=== PATIENT | male | born 1960 | race Caucasian/White ===

== ENCOUNTER 2017-05-18 09:40 | Emergency (ER) | payer OTHER ==
[2017-05-18 09:49] VITALS: RESP 16
[2017-05-18] MEDS ORDERED: RX INFO: IV CONTRAST WAS GIVEN 1 EACH MISC MISCELLANE PRN (10:07)
[2017-05-18 10:31] LABS: Basophils # (A) 0.1 k/uL (0-0.2); Basophils % (A) 1 %; Eosinophils # (A) 0.3 k/uL (0-0.7); Eosinophils % (A) 3 %; HCT 41.8 % (39.0-53.0); HGB 14.2 gm/dL (13.0-17.5); Lymphocytes # (A) 3.2 k/uL (1.0-4.8); Lymphocytes % (A) 30 %; MCH 33.1 pg (25.0-35.0); MCV 97.2 fL (80.0-100.0); Mean Platelet Volume 7.9; Monocytes # (A) 0.9 k/uL (0-1.0); Monocytes % (A) 9 %; Neutrophils # (A) 5.9 k/uL (1.3-7.7); Neutrophils % (A) 55 %; Platelet Count 312 k/uL (150-450); RDW 12.7 % (11.5-15.5); WBC 10.7 k/uL (3.8-10.6)
[2017-05-18 10:39] LABS: ALT 70 U/L (21-72); AST 56 U/L (17-59); Albumin 3.8 g/dL (3.5-5.0); Alkaline Phosphatase 72 U/L (38-126); Anion Gap 10 mmol/L; Blood Urea Nitrogen 7 mg/dL (9-20); Calcium 9.6 mg/dL (8.4-10.2); Carbon Dioxide 34 mmol/L (22-30); Chloride 98 mmol/L (98-107); Glucose 96 mg/dL (74-99); Potassium 3.4 mmol/L (3.5-5.1); Sodium 142 mmol/L (137-145); Total Bilirubin 0.7 mg/dL (0.2-1.3); Total Protein 6.6 g/dL (6.3-8.2)
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
[2017-05-18 12:21] VITALS: BP 122/93; PULSE 76; TEMP 98.7
== END 2017-05-18 12:20 | disposition home or self-care (01) ==
LOC: EC 09:40
DX: S20.219A Contusion of unspecified front wall of thorax, initial encounter (principal); S80.02XA Contusion of left knee, initial encounter; S60.811A Abrasion of right wrist, initial encounter; E78.5 Hyperlipidemia, unspecified; I10 Essential (primary) hypertension; F17.200 Nicotine dependence, unspecified, uncomplicated; Z79.1 Long term (current) use of non-steroidal anti-inflammatories (NSAID); Z79.51 Long term (current) use of inhaled steroids; Z79.891 Long term (current) use of opiate analgesic; Z79.899 Other long term (current) drug therapy; V49.40XA Driver injured in collision with unspecified motor vehicles in traffic accident, initial encounter; Y92.410 Unspecified street and highway as the place of occurrence of the external cause
CPT/HCPCS: 36415; 93005; 80053; 84484; 85025; 73562; 72125; 70450; 71260; 99285; Q9967

== ENCOUNTER 2017-10-10 10:27 | Emergency (ER) | payer OTHER ==
[2017-10-10] MEDS ORDERED: KETOROLAC 60 MG/2 ML VIAL IM STA (11:28)
--- NOTE | 2017-10-10 11:29 | ED ---
General Adult HPI - General Chief complaint: Recheck/Abnormal Lab/Rx Stated complaint: wants pain meds/neck pain Time Seen by Provider: 10/10/17 11:11 Source: patient, RN notes reviewed Mode of arrival: ambulatory Limitations: no limitations - History of Present Illness Initial comments: Patient 56-year-old male presented to the emergency room today with a chief complaint of chronic pain. Patient dismissed pain to his neck, back, knees. Patient states that he currently does not have any pain medication. Patient states she's been trying follow-up family doctor's waiting to look for him get his prescription. Patient states she's been using Tylenol at home. Week. He denies any injury or trauma patient denies any gallbladder incontinence times. Denies any saddle anesthesia. Denies any other complaints or symptoms. Patient denies any recent fever, chills, shortness of breath, chest pain, abdominal pain , nausea or vomiting, numbness or tingling, headaches or visual changes, or any other complaints. - Related Data Home Medications Medication Instructions Recorded Confirmed ALPRAZolam [Xanax] 0.5 mg PO TID PRN 10/10/17 10/10/17 Atenolol/Chlorthalidone 1 tab PO DAILY 10/10/17 10/10/17 [Atenolol-Chlorthalidone 100-25] Atorvastatin [Lipitor] 80 mg PO HS 10/10/17 10/10/17 Ergocalciferol [Vitamin D2] 50,000 unit PO Q30D 10/10/17 10/10/17 Mometasone/Formoterol [Dulera 200 2 puff INHALATION RT-BID 10/10/17 10/10/17 Mcg/5 Mcg Inhaler] Previous Rx's Medication Instructions Recorded Dexamethasone 0.75 mg PO DIRECTED #12 tablet 10/10/17 Allergies Allergy/AdvReac Type Severity Reaction Status Date / Time No Known Allergies Allergy Verified 10/10/17 10:41 Review of Systems ROS Statement: Those systems with pertinent positive or pertinent negative responses have been documented in the HPI. ROS Other: All systems not noted in ROS Statement are negative. Past Medical History Past Medical History: COPD, Hyperlipidemia, Hypertension Additional Past Medical History / Comment(s): chronic back pain History of Any Multi-Drug Resistant Organisms: None Reported Past Surgical History: Orthopedic Surgery Past Psychological History: Anxiety Smoking Status: Current every day smoker Past Alcohol Use History: Rare Past Drug Use History: None Reported General Exam - General Exam Comments Initial Comments: General: The patient is awake and alert, in no distress, and does not appear acutely ill. Eye: Pupils are equal, round and reactive to light, extra-ocular movements are intact. No nystagmus. There is normal conjunctiva bilaterally. No signs of icterus. Ears, nose, mouth and throat: There are moist mucous membranes and no oral lesions. Neck: The neck is supple, there is no tenderness or JVD. Cardiovascular: There is a regular rate and rhythm. No murmur, rub or gallop is appreciated. Respiratory: Lungs are clear to auscultation, respirations are non-labored, breath sounds are equal. No wheezes, stridor, rales, or rhonchi. Musculoskeletal: Normal ROM, no tenderness. Strength 5/5. Sensation intact. Pulses equal bilaterally 2+. Neurological: A&O x 3. CN II-XII intact, There are no obvious motor or sensory deficits. Coordination appears grossly intact. Speech is normal. Skin: Skin is warm and dry and no rashes or lesions are noted. Psychiatric: Cooperative, appropriate mood & affect, normal judgment. Limitations: no limitations Course Vital Signs 10/10/17 10:37 Temperature 98 F Pulse Rate 66 Respiratory 18 Rate Blood Pressure 125/78 O2 Sat by Pulse 98 Oximetry Medical Decision Making - Medical Decision Making The patient admits that this is chronic pain. States she's been trying follow- up family doctor for pain medication. Patient states he was taking Percocet for the past. Advised patient that we cannot give him any narcotics here. Patient agreeable to Toradol shot. Will be given short course of steroids for his pain. Disposition Clinical Impression: Chronic pain Disposition: HOME SELF-CARE Condition: Good Instructions: Chronic Pain (ED) Additional Instructions: Please use medication as discussed. Please follow-up with family doctor in the next 2 days of symptoms have not improved. Please return to emergency room if the symptoms increase or worsen or for any other concerns. Prescriptions: Dexamethasone 0.75 mg PO DIRECTED #12 tablet Is patient prescribed a controlled substance at d/c from ED?: No Referrals: Kade Ruvalcaba Jr, [Primary Care Provider] - 1-2 days Time of Disposition: 11:27
[2017-10-10 12:15] VITALS: BP 98/60; PULSE 57; RESP 15; TEMP 97.5
== END 2017-10-10 12:23 | disposition home or self-care (01) ==
LOC: MERGE 10:27 → EC 10:27 → EDBD 10:27 → EC 12:23
DX: G89.29 Other chronic pain (principal); M54.2 Cervicalgia; M54.9 Dorsalgia, unspecified; M25.562 Pain in left knee; M25.561 Pain in right knee; J44.9 Chronic obstructive pulmonary disease, unspecified; E78.5 Hyperlipidemia, unspecified; I10 Essential (primary) hypertension; F17.200 Nicotine dependence, unspecified, uncomplicated; Z79.51 Long term (current) use of inhaled steroids; Z79.899 Other long term (current) drug therapy
CPT/HCPCS: 99283; 96372; J1885

== ENCOUNTER 2018-01-08 09:10 | Emergency (ER) | payer OTHER ==
[2018-01-08 09:16] VITALS: TEMP 98.3
[2018-01-08] MEDS ORDERED: SODIUM CHLORIDE 0.9% 1,000 ML IV STA ×2 (10:11)
[2018-01-08] MEDS ORDERED: ONDANSETRON 4 MG/2 ML VIAL IVP STA (10:11)
[2018-01-08] MEDS ORDERED: KETOROLAC 30 MG/ML 1 ML VIAL IVP STA (10:11)
--- NOTE | 2018-01-08 10:13 | ED ---
Abdominal Pain HPI <Marc Dietrich - Last Filed: 01/08/18 12:30> - General Source: patient, RN notes reviewed, old records reviewed Mode of arrival: wheelchair Limitations: no limitations <Lolly Wahl - Last Filed: 01/10/18 12:04> - General Chief Complaint: Abdominal Pain Stated Complaint: Abdominal pain Time Seen by Provider: 01/08/18 09:47 - History of Present Illness Initial Comments: 57-year-old male presents emergency department today with chief complaint of diffuse abdominal pain for the past 2 weeks. He saw his PCP and initially thought the pain was related to diverticulosis and withdrawal from opiate pain medication. He recently restarted his opiate pain medication 3 days ago. He states that he was on Cipro and Flagyl but stopped that earlier this week because he felt like it was not working. Patient reports is also supposed to surround himself himself to correction today. (Lolly Wahl) - Related Data Home Medications Medication Instructions Recorded Confirmed Atenolol/Chlorthalidone 1 tab PO DAILY 05/18/17 01/08/18 [Atenolol-Chlorthalidone 100-25] Mometasone/Formoterol [Dulera 200 2 puff INHALATION RT-BID PRN 10/10/17 10/10/17 Mcg/5 Mcg Inhaler] Lisinopril [Zestril] 10 mg PO DAILY 01/08/18 01/08/18 Sertraline [Zoloft] 100 mg PO DAILY 01/08/18 01/08/18 oxyCODONE-APAP 7.5-325MG [Percocet 1 tab PO BID PRN 01/08/18 01/08/18 7.5-325 mg] Previous Rx's Medication Instructions Recorded Potassium Chloride ER [K-Dur 20] 20 meq PO TID #6 tab 01/08/18 Allergies Allergy/AdvReac Type Severity Reaction Status Date / Time No Known Allergies Allergy Verified 01/08/18 09:41 Review of Systems ROS Other: All systems not noted in ROS Statement are negative. <Marc Dietrich - Last Filed: 01/08/18 12:30> ROS Other: All systems not noted in ROS Statement are negative. <Lolly Wahl - Last Filed: 01/10/18 12:04> ROS Statement: Those systems with pertinent positive or pertinent negative responses have been documented in the HPI. Past Medical History Past Medical History: COPD, Hyperlipidemia, Hypertension Additional Past Medical History / Comment(s): chronic back pain History of Any Multi-Drug Resistant Organisms: None Reported Past Surgical History: Orthopedic Surgery Past Psychological History: Anxiety Smoking Status: Current every day smoker Past Alcohol Use History: Rare Past Drug Use History: None Reported <Lolly Wahl - Last Filed: 01/10/18 12:04> General Exam <Marc Dietrich - Last Filed: 01/08/18 12:30> Limitations: no limitations General appearance: alert, in no apparent distress Head exam: Present: atraumatic, normocephalic, normal inspection Eye exam: Present: normal appearance, PERRL, EOMI. Absent: scleral icterus, conjunctival injection, periorbital swelling ENT exam: Present: normal exam, mucous membranes moist Neck exam: Present: normal inspection. Absent: tenderness, meningismus, lymphadenopathy Respiratory exam: Present: normal lung sounds bilaterally. Absent: respiratory distress, wheezes, rales, rhonchi, stridor Cardiovascular Exam: Present: regular rate, normal rhythm, normal heart sounds. Absent: systolic murmur, diastolic murmur, rubs, gallop, clicks GI/Abdominal exam: Present: soft, tenderness (Left upper quadrant and right upper quadrant abdominal tenderness.), normal bowel sounds. Absent: distended, guarding, rebound, rigid Extremities exam: Present: normal inspection, full ROM, normal capillary refill. Absent: tenderness, pedal edema, joint swelling, calf tenderness Back exam: Present: normal inspection Neurological exam: Present: alert, oriented X3, CN II-XII intact Psychiatric exam: Present: normal affect, normal mood Skin exam: Present: warm, dry, intact, normal color. Absent: rash <Lolly Wahl - Last Filed: 01/10/18 12:04> - General Exam Comments Initial Comments: 37-year-old male. Alert and oriented. No significant distress. (Lolly Wahl) Course <Marc Dietrich - Last Filed: 01/08/18 12:30> <Lolly Wahl - Last Filed: 01/10/18 12:04> Vital Signs 01/08/18 01/08/18 01/08/18 09:11 12:27 13:21 Temperature 98.3 F Pulse Rate 67 66 57 L Respiratory 16 16 14 Rate Blood Pressure 132/88 122/81 131/84 O2 Sat by Pulse 97 96 95 Oximetry - Reevaluation(s) Reevaluation #1: 01/08/18 12:30 Patient reevaluated by myself, Dr. Dietrich. Patient had mild discomfort left lower abdomen. Computed tomography scan done. Patient updated on results. Case was discussed in detail with Dr. Jones who is okay with patient going home following medication and fluids. He states he can follow up with patient tomorrow for repeat blood work and patient can be discharged. Patient is comfortable with this. (Marc Dietrich) Medical Decision Making - Lab Data Result diagrams: 01/08/18 10:35 01/08/18 10:35 <Marc Dietrich - Last Filed: 01/08/18 12:30> - Lab Data Result diagrams: 01/08/18 10:35 01/08/18 10:35 - Radiology Data Radiology results: report reviewed <Lolly Wahl - Last Filed: 01/10/18 12:04> - Medical Decision Making 57-year-old male presents emergency department today with chief complaint of diffuse abdominal pain for the past 2 weeks. He saw his PCP and initially thought the pain was related to diverticulosis and withdrawal from opiate pain medication. He recently restarted his opiate pain medication 3 days ago. Patient labs do show evdience of electrolyte abnormalities, low potassium and sodium. Bilirubin is mildly elevated with WBC elevation as well. PAtient had cT scan today, negative for acute process. Patient case discussed with PCP. REcommends follow up outpatient and have patient on oral potassium replacement. REturn parameters discussed. (Lolly Wahl) - Lab Data Lab Results 01/08/18 01/08/18 01/08/18 Range/Units 10:35 10:35 10:35 WBC 14.7 H (3.8-10.6) k/uL RBC 4.82 (4.30-5.90) m/uL Hgb 16.1 (13.0-17.5) gm/dL Hct 44.2 (39.0-53.0) % MCV 91.6 (80.0-100.0) fL MCH 33.4 (25.0-35.0) pg MCHC 36.5 (31.0-37.0) g/dL RDW 11.9 (11.5-15.5) % Plt Count 301 (150-450) k/uL Neutrophils % 57 % Lymphocytes % 21 % Monocytes % 10 % Eosinophils % 10 % Basophils % 1 % Neutrophils # 8.5 H (1.3-7.7) k/uL Lymphocytes # 3.1 (1.0-4.8) k/uL Monocytes # 1.4 H (0-1.0) k/uL Eosinophils # 1.5 H (0-0.7) k/uL Basophils # 0.1 (0-0.2) k/uL PT 11.0 (9.0-12.0) sec INR 1.1 (<1.2) APTT 25.8 (22.0-30.0) sec Sodium 126 L (137-145) mmol/L Potassium 2.8 L (3.5-5.1) mmol/L Chloride 87 L (98-107) mmol/L Carbon Dioxide 26 (22-30) mmol/L Anion Gap 13 mmol/L BUN 7 L (9-20) mg/dL Creatinine 0.60 L (0.66-1.25) mg/dL Est GFR (CKD-EPI)AfAm >90 (>60 ml/min/1.73 sqM) Est GFR (CKD-EPI)NonAf >90 (>60 ml/min/1.73 sqM) Glucose 108 H (74-99) mg/dL Calcium 9.8 (8.4-10.2) mg/dL Magnesium (1.6-2.3) mg/dL Total Bilirubin 1.9 H (0.2-1.3) mg/dL AST 71 H (17-59) U/L ALT 100 H (21-72) U/L Alkaline Phosphatase 67 (38-126) U/L Total Protein 7.7 (6.3-8.2) g/dL Albumin 4.4 (3.5-5.0) g/dL Amylase 69 (30-110) U/L Lipase 90 (23-300) U/L 01/08/18 Range/Units 10:35 WBC (3.8-10.6) k/uL RBC (4.30-5.90) m/uL Hgb (13.0-17.5) gm/dL Hct (39.0-53.0) % MCV (80.0-100.0) fL MCH (25.0-35.0) pg MCHC (31.0-37.0) g/dL RDW (11.5-15.5) % Plt Count (150-450) k/uL Neutrophils % % Lymphocytes % % Monocytes % % Eosinophils % % Basophils % % Neutrophils # (1.3-7.7) k/uL Lymphocytes # (1.0-4.8) k/uL Monocytes # (0-1.0) k/uL Eosinophils # (0-0.7) k/uL Basophils # (0-0.2) k/uL PT (9.0-12.0) sec INR (<1.2) APTT (22.0-30.0) sec Sodium (137-145) mmol/L Potassium (3.5-5.1) mmol/L Chloride (98-107) mmol/L Carbon Dioxide (22-30) mmol/L Anion Gap mmol/L BUN (9-20) mg/dL Creatinine (0.66-1.25) mg/dL Est GFR (CKD-EPI)AfAm (>60 ml/min/1.73 sqM) Est GFR (CKD-EPI)NonAf (>60 ml/min/1.73 sqM) Glucose (74-99) mg/dL Calcium (8.4-10.2) mg/dL Magnesium 1.7 (1.6-2.3) mg/dL Total Bilirubin (0.2-1.3) mg/dL AST (17-59) U/L ALT (21-72) U/L Alkaline Phosphatase (38-126) U/L Total Protein (6.3-8.2) g/dL Albumin (3.5-5.0) g/dL Amylase (30-110) U/L Lipase (23-300) U/L - Radiology Data CT shows diverticulosis, hepatic steatosis. Degenerative disc of L5. (Lolly Wahl) Disposition <Marc Dietrich - Last Filed: 01/08/18 12:30> Is patient prescribed a controlled substance at d/c from ED?: No Time of Disposition: 13:10 <Lolly Wahl - Last Filed: 01/10/18 12:04> Clinical Impression: Hypokalemia, Diarrhea, Dehydration Disposition: HOME SELF-CARE Condition: Good Instructions: Dehydration (ED) Additional Instructions: Patient has follow-up with primary care provider and get labs rechecked. Return to emergency department if any alarming signs or symptoms occur. Prescriptions: Potassium Chloride ER [K-Dur 20] 20 meq PO TID #6 tab Referrals: Kade Ruvalcaba Jr, [Primary Care Provider] - 1-2 days
[2018-01-08 10:57] LABS: ALT 100 U/L (21-72); AST 71 U/L (17-59); Albumin 4.4 g/dL (3.5-5.0); Alkaline Phosphatase 67 U/L (38-126); Amylase 69 U/L (30-110); Anion Gap 13 mmol/L; Blood Urea Nitrogen 7 mg/dL (9-20); Calcium 9.8 mg/dL (8.4-10.2); Carbon Dioxide 26 mmol/L (22-30); Chloride 87 mmol/L (98-107); Glucose 108 mg/dL (74-99); Lipase 90 U/L (23-300); Potassium 2.8 mmol/L (3.5-5.1); Sodium 126 mmol/L (137-145); Total Bilirubin 1.9 mg/dL (0.2-1.3); Total Protein 7.7 g/dL (6.3-8.2)
[2018-01-08 10:59] LABS: Basophils # (A) 0.1 k/uL (0-0.2); Basophils % (A) 1 %; Eosinophils # (A) 1.5 k/uL (0-0.7); Eosinophils % (A) 10 %; HCT 44.2 % (39.0-53.0); HGB 16.1 gm/dL (13.0-17.5); Lymphocytes # (A) 3.1 k/uL (1.0-4.8); Lymphocytes % (A) 21 %; MCH 33.4 pg (25.0-35.0); MCHC 36.5 g/dL (31.0-37.0); MCV 91.6 fL (80.0-100.0); Mean Platelet Volume 9.3; Monocytes # (A) 1.4 k/uL (0-1.0); Monocytes % (A) 10 %; Neutrophils # (A) 8.5 k/uL (1.3-7.7); Neutrophils % (A) 57 %; Platelet Count 301 k/uL (150-450); RBC 4.82 m/uL (4.30-5.90); RDW 11.9 % (11.5-15.5); WBC 14.7 k/uL (3.8-10.6)
[2018-01-08] MEDS ORDERED: HYDROmorphone 1 MG/ML 1 ML SYRINGE IVP STA (11:05)
[2018-01-08 11:09] LABS: INR 1.1 (<1.2); Partial Thromboplastin Time 25.8 sec (22.0-30.0)
[2018-01-08] MEDS ORDERED: POTASSIUM CHLORIDE ER 20 MEQ TAB.ER PO STA (11:18)
[2018-01-08] MEDS ORDERED: POTASSIUM CHLORIDE 2 MEQ/ML 20 ML VIAL IVPB STA (11:20)
[2018-01-08] MEDS ORDERED: POTASSIUM CHLORIDE 20 MEQ in WATER FOR INJECTION 1 100ML.BAG IVPB STA (11:21)
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
[2018-01-08 13:21] VITALS: BP 131/84; PULSE 57; RESP 14
== END 2018-01-08 13:20 | disposition home or self-care (01) ==
LOC: EC 09:10
DX: E87.6 Hypokalemia (principal); E86.0 Dehydration; R19.7 Diarrhea, unspecified; J44.9 Chronic obstructive pulmonary disease, unspecified; I10 Essential (primary) hypertension; F41.9 Anxiety disorder, unspecified; F17.200 Nicotine dependence, unspecified, uncomplicated; Z79.899 Other long term (current) drug therapy
CPT/HCPCS: 36415; 80053; 82150; 83690; 83735; 85025; 85610; 85730; 74177; 99285; 96365; 96366; 96375 ×3; 96361; J3480; J2405; J1885; J1170; Q9967